=== PATIENT | female | born 1945 | race Caucasian/White ===

== ENCOUNTER 2022-10-30 10:20 | Outpatient (REF) | payer MEDICARE, SELFPAY ==
--- NOTE | ~2022-10-30 | XR_ITS ---
EXAMINATION: XR knee RT 2V, XR knee standing BI CLINICAL INFORMATION: Reason for Exam M25.561 - Pain in right knee COMPARISON: Knee radiographs 05/04/2022 TECHNIQUE: 1 views of the bilateral knees and 2 views of the right knee FINDINGS: RIGHT KNEE: No acute fracture or dislocation. Advanced degenerative changes of the knee with near complete loss of medial compartment joint space and bulky tricompartmental osteophytes. This is similar to prior. Small suprapatellar joint effusion. Soft tissues are unremarkable. LEFT KNEE: No acute fracture or dislocation. Status post total knee arthroplasty. No evidence of hardware fracture or complication. Few foci of heterotopic ossification along the medial aspect of the knee again seen. Soft tissues are unremarkable. XR/XR knee standing BI IMPRESSION: * No acute osseous abnormality. * Advanced degenerative changes of the right knee with small suprapatellar joint effusion. * Status post total knee arthroplasty. No evidence of hardware fracture or complication. Few foci of heterotopic ossification along the medial aspect of the knee again seen.
--- NOTE | ~2022-10-30 | XR_ITS ---
EXAMINATION: XR knee RT 2V, XR knee standing BI CLINICAL INFORMATION: Reason for Exam M25.561 - Pain in right knee COMPARISON: Knee radiographs 05/04/2022 TECHNIQUE: 1 views of the bilateral knees and 2 views of the right knee FINDINGS: RIGHT KNEE: No acute fracture or dislocation. Advanced degenerative changes of the knee with near complete loss of medial compartment joint space and bulky tricompartmental osteophytes. This is similar to prior. Small suprapatellar joint effusion. Soft tissues are unremarkable. LEFT KNEE: No acute fracture or dislocation. Status post total knee arthroplasty. No evidence of hardware fracture or complication. Few foci of heterotopic ossification along the medial aspect of the knee again seen. Soft tissues are unremarkable. XR/XR knee RT 2V IMPRESSION: * No acute osseous abnormality. * Advanced degenerative changes of the right knee with small suprapatellar joint effusion. * Status post total knee arthroplasty. No evidence of hardware fracture or complication. Few foci of heterotopic ossification along the medial aspect of the knee again seen.
== END 2022-10-30 10:21 | disposition home or self-care (01) ==
LOC: HO.HOSX 10:20
PROVIDERS: PCP Internal Medicine; Visit Provider Orthopaedic Surgery
DX: M17.11 Unilateral primary osteoarthritis, right knee (principal)
CPT/HCPCS: 73560; 73565; 99212

== ENCOUNTER 2022-12-13 10:04 | Outpatient (AMB) | payer MEDICARE, SELFPAY ==
--- NOTE | 2022-12-13 10:22 | A.OFFVIS_ITS ---
Intake Vital Signs 12/13/22 10:23 Height 5 ft 3 in Weight 165 lb BMI 29.2 Intake Visit Reasons: Pre-Op RT TKA 12/17/22DR Intake Note: Maci 77 yr old female presents today for her Pre op visit for her right total knee replacement. Pain management agreement reviewed and signed. The patient presents with complaints of progressively worsening right knee pain. She did undergo left total knee replacement surgery on 04/20/2022. She reports minimal discomfort in her left knee. She denies any fevers or chills. She describes her right knee pain as sharp and severe in nature, 02/19. Her right knee pain has gotten worse over the last few years in spite of continued non operative treatments. She has tried Tylenol and anti-inflammatory medicines which gave her minimal relief. She has also done physical therapy for 12 weeks over the last 6 months which aggravated her pain. She has had multiple injections in the past. The most recent injection gave her minimal relief. The most recent injection was greater than 3 months ago. The patient has difficulty walking even short distances because of her right knee pain. At this point her right knee pain is interfering with her activities of daily living and her ability to sleep well through the night. Allergies No Known Allergies Allergy (Verified 12/13/22 10:25) Medication List - Last Reviewed 12/13/22 by YUNG Bryant cholecalciferol (vitamin D3) (Vitamin D3) 50 mcg PO QAM cyanocobalamin (vitamin B-12) (Vitamin B-12) 1,000 mcg PO QAM rosuvastatin 5 mg PO QAM [facility] Medical History Arthritis Back pain Bifascicular bundle branch block Elevated cholesterol RBBB (right bundle branch block) Resting tremor Surgical History History of left knee replacement (04/20/22) Hx of arthroscopy of right knee Hx of excision of mass Hx of foot surgery Social History Are you a primary home care attendant to a significant other at home: No Do you presently have visiting nurse or other home services: No Patient Tobacco Use Status: Never used Tobacco Current occupational status: retired Physical Exam Vital Signs: BMI result Body Mass Index 29.2 Const Other: Well-nourished well-developed very friendly female awake alert and oriented x3 in no acute distress Lungs clear to auscultation bilaterally with symmetric expansion Cardiovascular exam regular rate and rhythm Abdominal exam is soft nontender nondistended Extrem Other: Bilateral lower extremity examination shows good capillary refill, no skin lesions noted, normal sensation light touch Right knee examination shows a minimal effusion, palpable crepitus with range of motion, pain with range of motion, range of motion from -3 degrees to 115 degrees, no instability Assessment & Plan Assessment & Plan (1) Arthritis of right knee: Code(s): M17.11 - Unilateral primary osteoarthritis, right knee Plan: Ms. Guerrero presents with progressively worsening right knee pain due to end- stage degenerative joint disease. I had a lengthy discussion with the patient regarding the treatment options. At this point she has failed continued non operative treatments. The risks and benefits of right total knee replacement surgery were discussed at length with the patient. We had a discussion regarding implant in bearing options. We had a detailed discussion of the advantages and limitations of the specific implant designs, materials and bearing surfaces. All questions were answered to the patient's satisfaction. The patient wishes to proceed with surgery. Because the patient's symptoms are severe and intractable we will schedule surgery for as soon as possible. Coronavirus precautions will be taken. family services coordinator will be consulted following her surgery for inpatient rehabilitation at [facility]. She did well at [facility] following her left total knee replacement surgery last year. I will see the patient back 2-3 weeks following her surgery for her 1st postoperative appointment. The patient will follow-up as instructed. Feel free to call me at any time should questions regarding her orthopedic management arise. I spent 21 minutes in reviewing the patient's records and imaging studies, seeing the patient and documenting in the medical record. Coding Level of Care Code Est Pt Level 2 (20630) Diagnoses Arthritis of right knee M17.11
[2022-12-13 10:23] VITALS: BMI 29.2
== END 2022-12-13 10:43 | disposition home or self-care (01) ==
PROVIDERS: PCP Internal Medicine; Visit Provider Orthopaedic Surgery
DX: M17.11 Unilateral primary osteoarthritis, right knee (principal)
CPT/HCPCS: 99212

== ENCOUNTER → 2022-12-13 10:04 | Outpatient (BNVA) | payer MEDICARE, SELFPAY | PROVIDERS: PCP Internal Medicine; Visit Provider Orthopaedic Surgery | DX: Z01.818 Encounter for other preprocedural examination (principal); M17.11 Unilateral primary osteoarthritis, right knee | CPT/HCPCS: 99212 ==

== ENCOUNTER 2022-12-17 05:57 | Day surgery (SDC) | payer MEDICARE, SELFPAY ==
[2022-12-12 12:54] VITALS: BMI 27.6
[2022-12-12 13:03] VITALS: BP 140/71; PULSE 60; RESP 16; O2SAT 97
--- NOTE | 2022-12-12 13:35 | HO.ANESPROP2 ---
HPI - Anesthesia Eval Consult details Narrative: For right total knee replacement Had prior left TKR w Dr. Matias van SAB. Very satisfied w that anesthetic and surgery. [facility] Active Problems Active Problems: All Active Problems (Updated 12/12/22 @ 12:51 by Janel Mcgowan RN) Knee pain, bilateral (Acute) Arthritis of right knee (Acute) Past Medical History Medical History (Updated 12/12/22 @ 12:51 by Janel Mcgowan RN) Arthritis Back pain Bifascicular bundle branch block Elevated cholesterol RBBB (right bundle branch block) Resting tremor Family History Family history of problems with anesthesia: No Surgical History Surgical History (Updated 12/12/22 @ 12:52 by Janel Mcgowan RN) History of left knee replacement (04/20/22) Hx of arthroscopy of right knee Hx of excision of mass Hx of foot surgery History of Problems with Anesthesia: No Social History Social History (Updated 10/30/22 @ 10:39 by Yamileth Bhakta CMA) Are you a primary health care aide to a significant other at home: No Do you presently have visiting nurse or other home services: No Patient Tobacco Use Status: Never used Tobacco Use of substances other than those prescribed or required for medical reasons: No Have you been hit, kicked, punched, or otherwise hurt by someone within the past year? If so, by whom?: No Are you DNR?: Yes Advance Directives Information Provided: Yes (states has official HCP form) Advance Directives on File: No Recently lost weight without trying: No Eating poorly because of decreased appetite: No Nutrition Risks: Surgical patient >75years Poor oral hygiene: No Current occupational status: retired [employer] Allergies Allergy/AdvReac Type Severity Reaction Status Date / Time No Known Allergies Allergy Verified 10/30/22 10:36 Home Medications Medication Instructions Recorded Confirmed Last Taken Type rosuvastatin 5 mg tablet 5 mg PO QAM 10/30/22 12/12/22 Unknown History cholecalciferol (vitamin D3) 50 50 mcg PO QAM 12/11/22 12/12/22 Unknown History mcg (2,000 unit) capsule (Vitamin D3) cyanocobalamin (vitamin B-12) 1,000 mcg PO QAM 12/12/22 12/12/22 Unknown History 1,000 mcg tablet (Vitamin B-12) Exam Exam Date and Time: December 12, 2022 1335 Height,Weight and Vital Signs: Height 5 ft 4 in Weight 73.028 kg Last Vital Signs Pulse 60 12/12/22 13:03 Resp 16 12/12/22 13:03 BP 140/71 H 12/12/22 13:03 Pulse Ox 97 12/12/22 13:03 O2 Del Method Room Air 12/12/22 13:03 Assessment and Plan Assessment Anesthesia Assessment: Anesthesia Plan Discussed and Chart Reviewed Final Anesthetic Review Family History of Problems with Anesthesia: No History of Problems with Anesthesia: No ASA Class: III Patient Risk: Intermediate Procedure Risk: Intermediate Anesthetic Plan Anesthetic Plan: Spinal
[2022-12-12 17:20] LABS: MRSA Nasal PCR NEGATIVE (Negative); SA Nasal PCR POSITIVE (Negative)
[2022-12-17] VITALS (12 sets, daily range): BP systolic 88–152; BP diastolic 48–78; PULSE 50–65; RESP 15–22; TEMP 36.1–36.7; O2SAT 93–98; BMI 27.6
--- NOTE | ~2022-12-17 | XR_ITS ---
EXAMINATION: XR KNEE, RIGHT CLINICAL INFORMATION: The patient is status post right knee total arthroplasty. COMPARISON: Right knee radiographs dated 10/30/2022. TECHNIQUE: Four views of the right knee. FINDINGS: The patient is status post right knee arthroplasty showing good anatomic alignment and no evidence for hardware malfunction. There is no acute fracture. Mild to moderate intra-articular and soft tissue air is noted. Multiple surgical clips overlie the soft tissues anteriorly. XR/XR knee RT 2V IMPRESSION: Post surgical changes. No hardware abnormality. No acute fracture.
[2022-12-17] MEDS: Lactated Ringers 1,000 ML 100 ML IVCONT ×2 (06:54→13:37)
--- NOTE | 2022-12-17 07:25 | HO.ANESPROP2 ---
HPI - Anesthesia Eval Consult details Narrative: 77 yo F presenting for right TKA PMFSH Active Problems Active Problems: All Active Problems (Updated 12/12/22 @ 12:51 by Janel Mcgowan RN) Knee pain, bilateral (Acute) Arthritis of right knee (Acute) Past Medical History Medical History Arthritis Back pain Bifascicular bundle branch block Elevated cholesterol RBBB (right bundle branch block) Resting tremor Family History Family history of problems with anesthesia: No Surgical History Surgical History History of left knee replacement (04/20/22) Hx of arthroscopy of right knee Hx of excision of mass Hx of foot surgery History of Problems with Anesthesia: No Social History Social History Are you a primary child care specialist to a significant other at home: No Do you presently have visiting nurse or other home services: No Patient Tobacco Use Status: Never used Tobacco Use of substances other than those prescribed or required for medical reasons: No Have you been hit, kicked, punched, or otherwise hurt by someone within the past year? If so, by whom?: No Are you DNR?: Yes Advance Directives Information Provided: Yes (states has official HCP form) Advance Directives on File: No Recently lost weight without trying: No Eating poorly because of decreased appetite: No Nutrition Risks: Surgical patient >75years Poor oral hygiene: No Current occupational status: retired Meds Allergies Allergy/AdvReac Type Severity Reaction Status Date / Time No Known Allergies Allergy Verified 12/13/22 10:25 Active Medications: Current Medications Lactated Ringer's (Lr) 1,000 mls @ 100 mls/hr IVCONT .Q10H HONEY Last Admin: 12/17/22 06:54 Dose: 100 mls/hr Home Medications Medication Instructions Recorded Confirmed Last Taken Type rosuvastatin 5 mg tablet 5 mg PO QAM 10/30/22 12/13/22 Unknown History cholecalciferol (vitamin D3) 50 50 mcg PO QAM 12/11/22 12/13/22 Unknown History mcg (2,000 unit) capsule (Vitamin D3) cyanocobalamin (vitamin B-12) 1,000 mcg PO QAM 12/12/22 12/13/22 Unknown History 1,000 mcg tablet (Vitamin B-12) Exam Exam Date and Time: December 17, 2022 0725 Height,Weight and Vital Signs: Height 5 ft 4 in Weight 73.028 kg Last Vital Signs Temp 97.4 F 12/17/22 06:27 Pulse 64 12/17/22 06:27 Resp 18 12/17/22 06:27 BP 152/74 H 12/17/22 06:27 Pulse Ox 97 12/17/22 06:27 O2 Del Method Room Air 12/17/22 06:27 Pertinent Lab Results Pertinent Lab Results: Laboratory Tests 12/12/22 12/12/22 13:10 13:44 Nasal Screen MRSA (PCR) NEGATIVE Nasal S. aureus Screen POSITIVE A Nasal MRSA/S.aureus Interp SEE NOTE Blood Type A Negative Antibody Screen NEGATIVE Airway Mallampati Class: I TM Dist: >3cm Neck ROM: Full Loose/Missing/Broken Teeth: No Heart: S1S2 Lungs: CTAB Assessment and Plan Assessment Anesthesia Assessment: Anesthesia Plan Discussed and Chart Reviewed Final Anesthetic Review Family History of Problems with Anesthesia: No History of Problems with Anesthesia: No NPO: Yes ASA Class: II Final Preanesthetic Review: No Changes in Pt Med Stat, Meds/Allgs Chart Reviewed, Consent Obtained/Reviewed and Anes Risks/Benef Reviewed Patient Risk: Low Procedure Risk: Intermediate Assessment/Block/Sedation in SS: Assess/Block/Sedation-SS Anesthetic Plan Anesthetic Plan: Spinal, Regional Block (right saphenous block) and Agree w/ Assess. and Plan Disposition: Standard PACU
--- NOTE | 2022-12-17 10:48 | P.BOP_ITS ---
Brief Operative Note Date of Service: 12/17/22 Pre-op diagnosis: Right knee degenerative joint disease Post-op diagnosis: same Procedure: Right total knee arthroplasty Implants: [place] [employer] cemented posterior stabilized total knee arthroplasty with a femoral component size 4 right, a universal tibial component size 4, polyethylene liner size 4 with 11 mm of thickness, an asymmetric patellar component size 29 with 9 mm of thickness Surgeon: Coleman Salcedo MD Anesthesia: regional and spinal Was an Director Of Extension Work used for this Procedure?: No Director Of Extension Work: Krystal Spangler Estimated blood loss (mL): 200 Tourniquet time (min): 0 Condition: stable Disposition: PACU
--- NOTE | 2022-12-17 10:50 | W.PM.OPN ---
Operative Note Operative Note Date of Service: 12/17/22 Narrative: After the patient was identified as Maci Guerrero and her right knee was initialed by myself the patient was brought to the holding area where a right leg nerve block was performed by the anesthesiologist in routine fashion. The patient was then brought to the operating room where conscious sedation and spinal anesthesia were performed by the anesthesiologist in routine fashion The patient was given 2 g of IV Ancef preoperatively for infection prophylaxis. The patient's right lower extremity was prepped and draped in sterile fashion. A formal time-out was completed. The patient's right knee was placed onto a small bump to produce 30? of knee flexion during exposure. A #10 scalpel blade was used to make a midline incision extending 1 handbreadth proximal and distal to the patella. A second #10 scalpel blade was used to dissect the subcutaneous tissues down to the extensor mechanism. The subcutaneous flaps were maintained as thick as possible. A medial parapatellar arthrotomy was then performed using a #10 scalpel blade. The arthrotomy was begun just medial to the patellar tendon. The arthrotomy was continued 1 cm medial to the patella and then 5 mm into the medial aspect of the quadriceps tendon. The infrapatellar fat pad was partially excised to help with exposure. The soft tissue retinaculum was raised one-half of the way around the medial aspect of the proximal tibia. The patella was everted and the knee was flexed to 90?. There was no injury to the patellar tendon or its insertion onto the tibial tubercle. A drill bit was introduced into the distal aspect of the femur with a starting point 1 cm anterior to the origin of the posterior cruciate ligament. The intramedullary alignment jerome was put into place. The distal alignment guide was set for a 5 degree valgus cut. The distal cutting block was put into place and was held with 4 pins. The intramedullary alignment jerome was removed. Soft tissues were retracted in the distal femoral cut was made using a sagittal saw. The distal aspect of the femur measured to be a size 4 right component. Two drill holes were placed into the distal aspect of the femur marking 3? of external rotation. The distal cutting block was impacted into place and was held with 2 pins. Soft tissues were retracted and the 4 distal femoral cuts were made using a sagittal saw. Final notching and drilling of the distal aspect of the femur were performed in routine fashion. The trial femoral component was impacted into place. The knee was taken through a full range of motion. The patella tracked well. The patella was everted and the knee was flexed to 90?. The trial component was removed and our attention was directed to the proximal tibia. The medial and lateral menisci were removed using a #10 scalpel blade. A small rim of the medial meniscus was left intact to help prevent injury to the medial collateral ligament. A drill bit was then introduced into the proximal tibia with a starting point midway from medial to lateral and one-third of the way posteriorly. The intramedullary alignment jerome was put into place. The proximal tibial cutting guide was placed over the alignment jerome in line with the 2nd toe. The guide was held in place using 3 pins. The intramedullary alignment jerome was removed. Soft tissues were retracted and the proximal tibial cut was made using a sagittal saw. The proximal tibia measured to be a size 4 component. The tibial tray was put into place with an 11 mm liner. The femoral component was impacted into place. The knee was taken through a full range of motion. There was full flexion and full extension. There was no instability with varus or valgus stress testing with the knee in flexion or extension. The patella tracked well with no medially directed force. The rotation of the tibial tray was marked using electrocautery with the knee in extension. The patella was everted and the knee was flexed to 90?. All trial components were removed. The tibial tray was placed onto the proximal tibia in line with the electrocautery patricia. The tray was held in place using 3 pins. Final broaching and drilling of the proximal tibia were performed in routine fashion. The trial liner and trial femoral component were put into place. The knee was brought into extension and our attention was directed to the patella. The patella measured 25 mm in thickness. The patellar resection guide was set for a 10 mm resection. Soft tissues were retracted and the patella cut was made using a sagittal saw. The remaining patella measured 15 mm in thickness. The undersurface of the patella was measured to be a size 29 asymmetric component. Three drill holes were placed into the undersurface of the patella in routine fashion. The trial component was put into place. The knee was taken through a full range of motion. The patella tracked well. The patella was everted and the knee was flexed to 90?. All trial components were removed. The knee was once again brought into extension and placed onto a small bump. The knee joint was irrigated with copious amounts of normal saline solution via pulse lavage while the cement was mixed. The patella was everted and the knee was flexed to 90?. A small amount of cement was placed along the posterior aspects of the tibial and femoral components. Cement was then pressurized into the proximal tibia. The tibial component was impacted into place. Any excess cement was removed. The polyethylene liner was then impacted into place. Cement was then pressurized into the distal aspect of the femur. A small amount of cement was placed into the intramedullary canal to help reduce bleeding. The femoral component was impacted into place. Any excess cement was removed. The knee was then brought into extension. Cement was pressurized into the undersurface of the patella. The patellar component was put into place and was held with a patella clamp. Any excess cement was removed. Once the cement had hardened the patellar clamp was removed. The knee was taken through a full range of motion. There was full flexion and extension. There was no instability with varus or valgus stress testing with the knee in flexion or extension. The patella tracked well with no medially directed force. The knee joint was irrigated with copious amounts of normal saline solution via pulse lavage. Any significant bleeding vessels were coagulated. The patient's right knee was placed onto a small bump. The arthrotomy was closed with #2 Ethibond [id number] interrupted suture as well as #1 Vicryl [id number] interrupted suture. The wound was once again irrigated. The subcutaneous tissues were closed with 0 Vicryl and 2-0 Vicryl interrupted sutures. The skin was closed with skin issa. Dry sterile dressing and Niraj bandages were placed over the patient's right knee. The patient was awake and alert. The patient was transferred to the recovery room in stable condition. Surgeon - Coleman Salcedo MD
[2022-12-17] MEDS: Acetaminophen 325 MG TABLET 650 MG PO (13:44)
[2022-12-17] MEDS: ceFAZolin Sodium/Dextrose,Iso 2 GM/50 ML PIGGYBACK IV (16:12)
[2022-12-17] MEDS: 0.9 % Sodium Chloride Flush 3 ML SYRINGE IVFLUSH (16:13)
[2022-12-17] MEDS: oxyCODONE HCl Immed Release 5 MG TABLET PO ×2 (16:23→19:57)
[2022-12-17] MEDS: Enoxaparin Sodium 30 MG/0.3 ML SYRINGE SUBCUT (19:56)
[2022-12-17] MEDS: Docusate Sodium 100 MG CAPSULE PO (19:57)
[2022-12-17] MEDS: Celecoxib 200 MG CAPSULE PO (19:58)
[2022-12-18] MEDS: Lactated Ringers 1,000 ML 100 ML IVCONT ×3 (00:17→20:20)
[2022-12-18] MEDS: ceFAZolin Sodium/Dextrose,Iso 2 GM/50 ML PIGGYBACK IV ×2 (00:17→08:50)
[2022-12-18] MEDS: Acetaminophen 325 MG TABLET 650 MG PO ×3 (02:28→18:29)
[2022-12-18 03:52] VITALS: BP 110/60; PULSE 56; RESP 16; TEMP 36.1; O2SAT 97
[2022-12-18] MEDS: oxyCODONE HCl Immed Release 5 MG TABLET PO (05:13)
[2022-12-18 05:59] LABS: MANUAL DIFF FLAG NO
[2022-12-18 06:19] LABS: Anion Gap 10 (12-20); Blood Urea Nitrogen 16 mg/dL (9-16); Carbon Dioxide 29 mmol/L (22-29); Chloride 105 mmol/L (96-108); Creatinine Clr Calc Pharmacy 59.7; Estimated Glomerular Filt Rate > 60; Glucose Fasting 126 mg/dL (60-99); Potassium 4.3 mmol/L (3.3-5.1); Sodium 140 mmol/L (135-145)
[2022-12-18 06:30] LABS: Basophils Percent Auto 0.2 % (0-2); Eosinophils Percent Auto 0.1 % (0-4); Hematocrit 32.5 % (37.0-47.0); Hemoglobin 10.3 g/dl (12.0-16.0); Imm Gran Abs Auto 0.04 X10*3/uL (0.00-0.03); Imm Gran Pct Auto 0.5 % (0.0-0.4); Lymphocytes Percent Auto 11.5 % (20-40); Mean Corpuscular HGB Conc 31.7 g/dl (31.0-35.0); Mean Corpuscular Hemoglobin 30.1 pg (27.0-33.0); Mean Platelet Volume 10.9 fL (9.4-12.3); Monocytes Percent Auto 11.4 % (2-11); Neutrophils Absolute Auto 6.6 x10*3/uL (2.0-8.3); Neutrophils Percent Auto 76.3 % (45-73); Platelet Count 181 X10*3/uL (160-400); Red Blood Count 3.42 X10*6/uL (4.20-5.50); White Blood Count 8.7 X10*3/uL (4.8-10.8)
[2022-12-18 07:07] VITALS: BP 107/61; PULSE 51; RESP 18; TEMP 36.4; O2SAT 94
--- NOTE | 2022-12-18 07:38 | P.PNOP_ITS ---
Subjective Subjective Date of Service: 12/18/22 Interval history: POD 1 s/p RT TKa No overnight events resting in bed denies cp,sob,palpitations. Physical Exam Vital Signs: Vital Signs: Last Vital Signs Temp 97.5 F 12/18/22 07:07 Pulse 51 12/18/22 07:07 Resp 18 12/18/22 07:07 BP 107/61 12/18/22 07:07 Pulse Ox 94 12/18/22 07:07 O2 Del Method Room Air 12/18/22 07:07 O2 Flow Rate 2 12/17/22 10:55 BMI result Body Mass Index 27.6 Const: General: cooperative, healthy appearing and no acute distress Resp: Effort & Inspection: normal respiratory effort and able to speak in complete sentences Cardio: Rate: regular rate Peripheral pulses: Peripheral pulses 2+ throughout GI: Palpation (GI): Soft to palpation Skin: General skin exam: no rashes or lesions noted Extrem: Other: bandge clean dry and intact. [place] intact. No erythema or joint effusion. Calf supple nontender. Neurovascularly intact. Procedures Date of Service Date of Service: 12/18/22 Progress Note: A&P Assessment and plan (1) Status post total right knee replacement: Status: Acute Assessment and Plan: * Continue pain mgmnt * continue lovenox for dvt ppx * continue PT for RT TKA * Dispo planning-Pending PT eval, pain mgmnt Time Spent With Patient Time: Total time managing care of this patient today ____ minutes. Quality Stroke Does the patient have a stroke diagnosis?: No VTE Prior VTE?: No VTE Risk Level:: Surgical - very high VTE Device Contraindication: N/A - Device Ordered VTE Drug Contraindication: N/A - Med Ordered
[2022-12-18] MEDS: ondansetron HCL 4 MG/2 ML VIAL IVPUSH (08:49)
[2022-12-18] MEDS: Enoxaparin Sodium 30 MG/0.3 ML SYRINGE SUBCUT ×2 (08:53→19:59)
--- NOTE | 2022-12-18 09:16 | HO.POSTANES ---
Post Anesthesia Evaluation Post Anesthesia Evaluation Date of Service: 12/18/22 Vital Signs: Vital Signs Temp Pulse Resp BP Pulse Ox O2 Del Method 12/18/22 07:07 97.5 F 51 18 107/61 94 Room Air 12/18/22 03:52 96.9 F 56 16 110/60 97 Room Air Anesthesia: Spinal and Nerve Block Mental Status: Awake Pain Control: Satisfactory Nausea/Vomiting: None Hydration: Adequate Anesthesia-Related Issues: No Anes. Related Issues
[2022-12-18] MEDS: Docusate Sodium 100 MG CAPSULE PO ×2 (09:25→19:58)
[2022-12-18] MEDS: Celecoxib 200 MG CAPSULE PO ×2 (09:25→19:59)
[2022-12-18] MEDS: Atorvastatin Calcium 20 MG TABLET PO (09:26)
[2022-12-18] MEDS: Cyanocobalamin (Vitamin B-12) 1,000 MCG TABLET 1000 MCG PO (09:26)
[2022-12-18] MEDS: Cholecalciferol (Vitamin D3) 25 MCG TABLET 50 MCG PO (09:26)
--- NOTE | 2022-12-18 09:55 | MHC.CM.PN ---
pt lives alone in [facility] pt sergio go to str when chica landers is [facility] 2nd maggie forbes
[2022-12-18 15:26] VITALS: BP 148/65; PULSE 56; RESP 18; TEMP 36.8; O2SAT 99
--- NOTE | 2022-12-18 18:34 | W.MHC.F2F ---
Service Date Service Date: 12/18/22 Encounter Date of encounter: 12/19/22 Reasons for Services Signs and symptoms assessed: s/p RTKA. Pt. is considered homebound due to recent surgery. Unable to drive, poor balance, poor gait mechanics. Reason for physical therapy: home safety and mobility, therapeutic exercises, restore joint function, gait/transfer training, assess need for DME and ADL training Homebound: Leaving the home is medically contraindicated at this time without the asist of a device and/or another person due th the listed conditions above and below. Reason homebound: unsteady gait / fall risk, leg weakness, pain with ambulation, pain with transfers, poor balance / fall risk and unable to drive Certification: Based on the above findings, I certify that this patient is confined to the home and needs intermittent care home care, physical therapy and/or speech therapy, or continues to need occupational therapy. The patient is under my care, and I have initiated the establishment of the plan of care. The patient will be followed by a physician who will periodically review the plan of care. Time Spent With Patient Time: Total time managing care of this patient today ____ minutes.
--- NOTE | 2022-12-18 18:35 | PM.DS ---
DS: Providers Provider Date of Service: 12/20/22 Primary care physician: Laura Soto MD DS: Diagnosis Discharge Diagnosis (1) Status post total right knee replacement: Status: Acute DS: Summary Hospital Course Hospital Course: The patient underwent a successful right total knee arthroplasty, they were transferred to PACU and then to the floor to recover. During their stay, their vitals were stable, afebrile at 98.2. Labs were unremarkable, H/H 10.3/32.5. POD 0 they were started on Lovenox for DVT ppx, they also received Physical Therapy services twice a day. Prior to discharge, their dressing was changed, incision clean dry and intact, Aquacel dressing intact and the plan was to be discharged home with VNA services. Time Spent with Patient Time attestation: Total time managing care of this patient today ____ minutes. Discharge coordination time: Less than 30 minutes Quality: Safe Use of Opioids Does Pt have an Active Cancer Diagnosis on the Problem List?: No Quality: Stroke Does the patient have a stroke diagnosis?: No Physical Exam Vital Signs: Vital Signs: Last Vital Signs Temp 98.2 F 12/18/22 15:26 Pulse 56 12/18/22 15:26 Resp 18 12/18/22 15:26 BP 148/65 H 12/18/22 15:26 Pulse Ox 99 12/18/22 15:26 O2 Del Method Room Air 12/18/22 15:26 O2 Flow Rate 2 12/17/22 10:55 BMI result Body Mass Index 27.6 Const: General: cooperative, healthy appearing and no acute distress Resp: Effort & Inspection: normal respiratory effort and able to speak in complete sentences Cardio: Rate: regular rate Peripheral pulses: Peripheral pulses 2+ throughout GI: Palpation (GI): Soft to palpation Skin: General skin exam: no rashes or lesions noted Extrem: Other: Right knee bandage clean dry and intact. [place] intact. No erythema or joint effusion. Calf supple nontender. Neurovascularly intact. DS: Data Data Completed and Pending Pending studies at discharge: Pending at discharge 12/17/22 09:31 Surgical [PTH] Routine Labs on day of discharge: Laboratory Results - last 24 hr 12/18/22 12/18/22 05:03 05:03 WBC 8.7 RBC 3.42 L Hgb 10.3 L Hct 32.5 L MCV 95.0 MCH 30.1 MCHC 31.7 RDW 13.0 Plt Count 181 MPV 10.9 Immature Gran % (Auto) 0.5 H Neut % (Auto) 76.3 H Lymph % (Auto) 11.5 L [place] % (Auto) 11.4 H Eos % (Auto) 0.1 Baso % (Auto) 0.2 Lymph # (Auto) 1.0 L [place] # (Auto) 1.0 Eos # (Auto) 0.0 Baso # (Auto) 0.0 Abs Immat Gran (auto) 0.04 H Absolute Neuts (auto) 6.6 Absolute Nucleated RBC 0.000 Nucleated RBC % (auto) 0.0 Sodium 140 Potassium 4.3 Chloride 105 Carbon Dioxide 29 Anion Gap 10 L BUN 16 Creatinine 0.76 Estim Creat Clear Calc 59.7 Estimated GFR > 60 Fasting Glucose 126 H Calcium 9.0 Discharge Plan Discharge Patient Disposition: Home, Self-Care Referrals: Krystal Spangler PA-C [Physician [facility]] - 01/03/23 2:15 pm Discharge Medications: New acetaminophen 325 mg Tablet 650 mg PO Q6H PRN (Reason: Pain, Mild (Pain Scale 1-3)) 30 Days Qty: 240 0RF celecoxib 200 mg Capsule 200 mg PO BID 30 Days Qty: 60 0RF docusate sodium 100 mg Capsule 100 mg PO BID 30 Days Qty: 60 0RF oxycodone 5 mg tablet 5 mg PO Q4H PRN (Reason: pain) 7 Days Qty: 42 0RF Rx Instructions: Partial Fill upon patient request. Eliquis 5 mg tablet 5 mg PO BID 42 Days Qty: 84 0RF Continued cholecalciferol (vitamin D3) [Vitamin D3] 50 mcg (2,000 unit) Capsule 50 mcg PO QAM cyanocobalamin (vitamin B-12) [Vitamin B-12] 1,000 mcg Tablet 1,000 mcg PO QAM rosuvastatin 5 mg tablet 5 mg PO QAM Discharge Orders: Discharge Order (Routine); Ordered 12/20/22 Ordered By: Krystal Spangler Diet: Advance to usual diet Activity on Discharge: Use cane or walker Activity Restrictions/Additional Instructions: Physical Therapy for ROM 0-120, quad strength, gait training. Use walker for ambulation Limit stair climbing, No shower, No tub bath, No driving Continue anticoagulant Keep Aquacel dressing clean, dry and intact. Follow up with orthopedics in 2 weeks
[2022-12-18 19:11] VITALS: BP 156/61; PULSE 63; RESP 18; TEMP 36.1; O2SAT 98
[2022-12-18 20:06] VITALS: TEMP 36.2
[2022-12-19] MEDS: Acetaminophen 325 MG TABLET 650 MG PO ×4 (01:42→23:47)
[2022-12-19 04:00] VITALS: BP 157/72; PULSE 63; RESP 18; TEMP 36.1; O2SAT 95
[2022-12-19] MEDS: Lactated Ringers 1,000 ML 100 ML IVCONT (05:08)
[2022-12-19 05:36] LABS: MANUAL DIFF FLAG NO
[2022-12-19 05:38] LABS: Basophils Absolute Auto 0.1 X10*3/uL (0.0-0.2); Basophils Percent Auto 0.8 % (0-2); Eosinophils Absolute Auto 0.1 X10*3/uL (0.0-0.4); Eosinophils Percent Auto 0.8 % (0-4); Hematocrit 29.3 % (37.0-47.0); Hemoglobin 9.2 g/dl (12.0-16.0); Imm Gran Abs Auto 0.02 X10*3/uL (0.00-0.03); Imm Gran Pct Auto 0.3 % (0.0-0.4); Lymphocytes Percent Auto 15.6 % (20-40); Mean Corpuscular HGB Conc 31.4 g/dl (31.0-35.0); Mean Corpuscular Hemoglobin 30.1 pg (27.0-33.0); Mean Corpuscular Volume 95.8 fL (80.0-98.0); Mean Platelet Volume 11.1 fL (9.4-12.3); Monocytes Absolute Auto 0.7 X10*3/uL (0.1-1.2); Monocytes Percent Auto 11.1 % (2-11); Neutrophils Absolute Auto 4.7 x10*3/uL (2.0-8.3); Neutrophils Percent Auto 71.4 % (45-73); Platelet Count 166 X10*3/uL (160-400); Red Blood Count 3.06 X10*6/uL (4.20-5.50); Red Cell Distribution Width 12.9 % (11.0-16.0); White Blood Count 6.6 X10*3/uL (4.8-10.8)
[2022-12-19 05:54] LABS: Anion Gap 9 (12-20); Blood Urea Nitrogen 13 mg/dL (9-16); Calcium 8.9 mg/dL (8.4-10.2); Carbon Dioxide 29 mmol/L (22-29); Chloride 108 mmol/L (96-108); Creatinine Clr Calc Pharmacy 64.9; Estimated Glomerular Filt Rate > 60; Glucose Fasting 100 mg/dL (60-99); Potassium 4.1 mmol/L (3.3-5.1); Sodium 142 mmol/L (135-145)
--- NOTE | 2022-12-19 07:22 | P.PNOP_ITS ---
Subjective Subjective Date of Service: 12/19/22 Interval history: POD2 s/p RTKA. Patient is resting in bed comfortably. No overnight events. Pain is managed. No additional complaints. Physical Exam Vital Signs: Vital Signs: Last Vital Signs Temp 96.9 F 12/19/22 04:00 Pulse 63 12/19/22 04:00 Resp 18 12/19/22 04:00 BP 157/72 H 12/19/22 04:00 Pulse Ox 95 12/19/22 04:00 O2 Del Method Room Air 12/19/22 04:00 O2 Flow Rate 2 12/17/22 10:55 BMI result Body Mass Index 27.6 Const: General: cooperative, healthy appearing and no acute distress Resp: Effort & Inspection: normal respiratory effort and able to speak in complete sentences Cardio: Rate: regular rate Peripheral pulses: Peripheral pulses 2+ throughout GI: Palpation (GI): Soft to palpation Skin: General skin exam: no rashes or lesions noted Extrem: Other: Right knee bandage clean dry and intact. [place] intact. No erythema or joint effusion. Calf supple nontender. Neurovascularly intact. Procedures Date of Service Date of Service: 12/19/22 Progress Note: A&P Assessment and plan (1) Status post total right knee replacement: Status: Acute Assessment and Plan: * Continue pain mgmnt * continue lovenox for dvt ppx * continue PT for RT TKA * Dispo planning- PT, pain mgmnt, rehab placement Time Spent With Patient Time: Total time managing care of this patient today ____ minutes. Quality Stroke Does the patient have a stroke diagnosis?: No VTE Prior VTE?: No VTE Risk Level:: Surgical - very high VTE Device Contraindication: N/A - Device Ordered VTE Drug Contraindication: N/A - Med Ordered
[2022-12-19 07:27] VITALS: BP 137/65; PULSE 72; RESP 16; TEMP 36.6; O2SAT 96
[2022-12-19] MEDS: Cholecalciferol (Vitamin D3) 25 MCG TABLET 50 MCG PO (09:45)
[2022-12-19] MEDS: Docusate Sodium 100 MG CAPSULE PO ×2 (09:45→21:26)
[2022-12-19] MEDS: polyethylene glycoL 3350 17 GM POWD.PACK PO (09:45)
[2022-12-19] MEDS: Cyanocobalamin (Vitamin B-12) 1,000 MCG TABLET 1000 MCG PO (09:46)
[2022-12-19] MEDS: Enoxaparin Sodium 30 MG/0.3 ML SYRINGE SUBCUT ×2 (09:46→21:26)
[2022-12-19] MEDS: Celecoxib 200 MG CAPSULE PO ×2 (09:46→21:26)
[2022-12-19] MEDS: Atorvastatin Calcium 20 MG TABLET PO (09:46)
[2022-12-19] MEDS: 0.9 % Sodium Chloride Flush 3 ML SYRINGE IVFLUSH ×2 (15:46→23:47)
[2022-12-19 15:50] VITALS: BP 131/61; PULSE 76; RESP 18; TEMP 36.4; O2SAT 95
--- NOTE | 2022-12-19 15:54 | MHC.CM.PN ---
pt is a same day care pt does not qualify for a snf denied by [facility] ,pp rate at [facility] is [id number] for 2 weeks and [facility] is 605 a day for 14 day minium reerral also given to [facility] for home pt
[2022-12-19 19:21] VITALS: BP 110/57; PULSE 63; RESP 18; TEMP 36.6; O2SAT 100
[2022-12-20 03:40] VITALS: BP 130/60; PULSE 68; RESP 18; TEMP 36.4; O2SAT 97
[2022-12-20 06:08] LABS: MANUAL DIFF FLAG NO
[2022-12-20 06:13] LABS: Basophils Percent Auto 0.7 % (0-2); Eosinophils Absolute Auto 0.1 X10*3/uL (0.0-0.4); Eosinophils Percent Auto 2.2 % (0-4); Hematocrit 26.2 % (37.0-47.0); Hemoglobin 8.3 g/dl (12.0-16.0); Imm Gran Abs Auto 0.03 X10*3/uL (0.00-0.03); Imm Gran Pct Auto 0.6 % (0.0-0.4); Lymphocytes Absolute Auto 1.3 X10*3/uL (1.2-4.9); Lymphocytes Percent Auto 23.8 % (20-40); Mean Corpuscular HGB Conc 31.7 g/dl (31.0-35.0); Mean Corpuscular Hemoglobin 30.2 pg (27.0-33.0); Mean Corpuscular Volume 95.3 fL (80.0-98.0); Mean Platelet Volume 11.2 fL (9.4-12.3); Monocytes Absolute Auto 0.6 X10*3/uL (0.1-1.2); Monocytes Percent Auto 11.6 % (2-11); Neutrophils Absolute Auto 3.3 x10*3/uL (2.0-8.3); Neutrophils Percent Auto 61.1 % (45-73); Platelet Count 163 X10*3/uL (160-400); Red Blood Count 2.75 X10*6/uL (4.20-5.50); Red Cell Distribution Width 13.2 % (11.0-16.0); White Blood Count 5.4 X10*3/uL (4.8-10.8)
[2022-12-20 06:23] LABS: Anion Gap 11 (12-20); Blood Urea Nitrogen 14 mg/dL (9-16); Calcium 9.1 mg/dL (8.4-10.2); Carbon Dioxide 28 mmol/L (22-29); Chloride 108 mmol/L (96-108); Creatinine Clr Calc Pharmacy 58.1; Estimated Glomerular Filt Rate > 60; Glucose Fasting 87 mg/dL (60-99); Potassium 3.9 mmol/L (3.3-5.1); Sodium 143 mmol/L (135-145)
[2022-12-20 07:27] VITALS: BP 119/62; PULSE 70; RESP 18; TEMP 36.2; O2SAT 99
[2022-12-20] MEDS: Acetaminophen 325 MG TABLET 650 MG PO (09:06)
[2022-12-20] MEDS: Celecoxib 200 MG CAPSULE PO (09:06)
[2022-12-20] MEDS: polyethylene glycoL 3350 17 GM POWD.PACK PO (09:06)
[2022-12-20] MEDS: Docusate Sodium 100 MG CAPSULE PO (09:06)
[2022-12-20] MEDS: Cholecalciferol (Vitamin D3) 25 MCG TABLET 50 MCG PO (09:06)
[2022-12-20] MEDS: Atorvastatin Calcium 20 MG TABLET PO (09:06)
[2022-12-20] MEDS: Cyanocobalamin (Vitamin B-12) 1,000 MCG TABLET 1000 MCG PO (09:06)
[2022-12-20] MEDS: Enoxaparin Sodium 30 MG/0.3 ML SYRINGE SUBCUT (09:07)
[2022-12-20] MEDS: 0.9 % Sodium Chloride Flush 3 ML SYRINGE IVFLUSH (09:07)
--- NOTE | 2022-12-20 11:00 | MHC.CM.PN ---
DP: PT HAS BEEN MEDICALLY CLEARED FOR DC HOME WITH NEW [facility] FOR HOME P.T. [facility] NOTIFIED OF TODAY'S DC. RN AWARE. FAMILY WILL TRANSPORT HOME.
== END 2022-12-20 14:05 | disposition home health service (06) ==
LOC: HO.SSS 05:58 → HO.S3 09:42
PROVIDERS: Physician Assistant; PCP Internal Medicine; Visit Provider Orthopaedic Surgery
PROC: (CPT 27447; principal; 2022-12-17 07:30)
DX: M17.11 Unilateral primary osteoarthritis, right knee (principal); M25.561 Pain in right knee; R26.2 Difficulty in walking, not elsewhere classified; Z96.652 Presence of left artificial knee joint; Z66 Do not resuscitate; M54.30 Sciatica, unspecified side; I45.2 Bifascicular block; E78.5 Hyperlipidemia, unspecified; I45.10 Unspecified right bundle-branch block; E55.9 Vitamin D deficiency, unspecified; G25.2 Other specified forms of tremor; Z79.899 Other long term (current) drug therapy
CPT/HCPCS: 27447; 36415; 73560; 80048; 85025; 86850; 86900; 86901; 87640; 87641; 88305; 88311; 97110; 97116; 97161; 97530; C1713; C1776; J0131; J0690; J1100; J1650; J2250; J2371; J2405; J3010; J3370

== ENCOUNTER → 2022-12-17 05:57 | Outpatient (BNV) | payer MEDICARE, SELFPAY | PROVIDERS: PCP Internal Medicine; Visit Provider Orthopaedic Surgery | DX: Z47.1 Aftercare following joint replacement surgery (principal); Z96.651 Presence of right artificial knee joint | CPT/HCPCS: 27447; 99024; G0180 ==

== ENCOUNTER 2023-01-03 05:18 | Outpatient (REF) | payer MEDICARE, SELFPAY ==
--- NOTE | ~2023-01-03 | XR_ITS ---
EXAMINATION: XR KNEE, RIGHT XR KNEE, AP BILATERAL CLINICAL INFORMATION: Status-post bilateral knee total arthroplasties. COMPARISON: Radiographs dated 10/30/2022. TECHNIQUE: Lateral and axial views of the right knee are submitted. An AP upright view of the bilateral knees are submitted. FINDINGS: Prosthetic components of the bilateral total knee arthroplasties are appropriately aligned without periprosthetic fracture or abnormal lucency. The right arthroplasty is recently placed, with soft tissue gas and fluid noted and anterior skin issa. There is no foreign body. XR/XR knee RT 3V IMPRESSION: Normal bilateral total knee arthroplasties.
== END 2023-01-03 05:19 | disposition home or self-care (01) ==
LOC: HO.HOSX 05:18
PROVIDERS: Visit Provider Orthopaedic Surgery
DX: M25.561 Pain in right knee (principal); Z47.1 Aftercare following joint replacement surgery; Z96.651 Presence of right artificial knee joint
CPT/HCPCS: 73562

== ENCOUNTER 2023-01-03 13:37 | Outpatient (AMB) | payer MEDICARE, SELFPAY ==
--- NOTE | 2023-01-03 13:40 | MHC.OFFVIS ---
Intake Vital Signs 01/03/23 13:49 Height 5 ft 4 in Weight 161 lb BMI 27.6 Intake Visit Reasons: Post-Op RT TKA 12/17/22DR Intake Note: Maci is a 77 year old female presents today for her post op visit for her right TKA, 12/17/22 Patient reports no pain or discomfort at the moment but she does have a mild ache. Allergies No Known Allergies Allergy (Verified 01/03/23 13:49) HPI Post-Op RT TKA 12/17/22DR HPI Details 77-year-old female who presents in the office today 2 weeks status post right total knee arthroplasty, which was performed on 12/17/[address] Salcedo. The patient reports no pain or discomfort at the moment but she does have mild aching. [facility] Medical History Arthritis Back pain Bifascicular bundle branch block Elevated cholesterol RBBB (right bundle branch block) Resting tremor Surgical History History of left knee replacement (04/20/22) Hx of arthroscopy of right knee Hx of excision of mass Hx of foot surgery Social History Household Members: None Are you a primary plant health care technician to a significant other at home: No Do you presently have visiting nurse or other home services: No Patient Tobacco Use Status: Never used Tobacco Advance Directives Date on File: 12/17/22 service: No Current occupational status: retired Review of Systems Const All systems reviewed & are unremarkable except as noted in HPI and below Physical Exam Vital Signs: BMI result Body Mass Index 27.6 Const General: cooperative, healthy appearing and no acute distress Resp Effort & Inspection: normal respiratory effort and able to speak in complete sentences Cardio Rate: regular rate Peripheral pulses: Peripheral pulses 2+ throughout GI Palpation (GI): Soft to palpation Skin Lesions: no lesions Rashes: no rashes Extrem Other: Right knee: Incision site is clean, dry, and intact. No surrounding erythema or drainage. No signs of infection. [place] intact. NVI. Ambulting with use of a cane. Assessment & Plan Assessment & Plan (1) Status post total right knee replacement: Code(s): Z96.651 - Presence of right artificial knee joint Plan Ms. Guerrero is a 77-year-old female who presents in the office today 2 weeks status post right total knee arthroplasty, which was performed on 12/17/[address] Salcedo. The patient reports no pain or discomfort at the moment but she does have mild aching. Seren[place] were removed and steri-stripes were applied in the office today. Dr. Salcedo was available to see the patient with me while in the office today. She is overall doing very well. She will continue with physical therapy. She will transition to out patient physical therapy. Follow up will be in [address] Salcedo, or sooner if needed. X-rays of the right knee which were obtained while in the office today and were reviewed by me, Krystal Spangler PA-C, revealed orthopedic hardware intact with routine healing. Orders: Orders XR knee RT 3V Today Z96.651 - Presence of right artificial knee joint Patient Instructions: Scribed for Krystal Spangler PA-C by Mary Morgan spanish medical interpreter, on 01/03/2023 at 1:43 pm, EST. Coding Level of Care Code Global (51841) Diagnoses Status post total right knee replacement Z96.651
[2023-01-03 13:49] VITALS: BMI 27.6
== END 2023-01-03 14:30 | disposition home or self-care (01) ==
PROVIDERS: PCP Internal Medicine; Visit Provider Physician Assistant
DX: Z96.651 Presence of right artificial knee joint (principal)
CPT/HCPCS: 99024

== ENCOUNTER 2023-01-31 11:19 | Outpatient (AMB) | payer MEDICARE, SELFPAY ==
--- NOTE | 2023-01-31 12:18 | A.OFFVIS_ITS ---
Intake Vital Signs 01/31/23 12:20 Height 5 ft 4 in Weight 161 lb BMI 27.6 Intake Visit Reasons: RT TKA 12/17/22DR Intake Note: Maci 77 yr old female presents today for her P/O visit for her Right TKA from 12/17/[address] Salcedo. States she is doing well with P.T. will she denies any fevers or chills. She is no longer taking narcotics for her discomfort. She takes Tylenol 2 or 3 times daily as needed. Allergies No Known Allergies Allergy (Verified 01/31/23 12:20) Medication List - Last Reconciled 01/31/23 by Coleman Salcedo MD acetaminophen 650 mg (2 x 325 mg) PO Q6H PRN 30 days apixaban (Eliquis) 5 mg PO BID 42 days celecoxib 200 mg PO BID 30 days cholecalciferol (vitamin D3) (Vitamin D3) 50 mcg PO QAM cyanocobalamin (vitamin B-12) (Vitamin B-12) 1,000 mcg PO QAM docusate sodium 100 mg PO BID 30 days oxycodone 5 mg PO Q4H PRN 7 days rosuvastatin 5 mg PO QAM PFSH Medical History Arthritis Back pain Bifascicular bundle branch block Elevated cholesterol RBBB (right bundle branch block) Resting tremor Surgical History History of left knee replacement (04/20/22) Hx of arthroscopy of right knee Hx of excision of mass Hx of foot surgery Social History Household Members: None Are you a primary health care sanitary technician to a significant other at home: No Do you presently have visiting nurse or other home services: No Patient Tobacco Use Status: Never used Tobacco Advance Directives Date on File: 12/17/22 service: No Current occupational status: retired Physical Exam Vital Signs: BMI result Body Mass Index 27.6 Extrem Other: Physical examination of the patient's right knee shows that the surgical incision is well healed, no erythema, full active extension and flexion to 120 degrees, patella tracks well Assessment & Plan Assessment & Plan (1) Status post total right knee replacement: Code(s): Z96.651 - Presence of right artificial knee joint Plan Ms. Guerrero continues to do well after undergoing right total knee replacement surgery on 12/17/2022. She will continue with her physical therapy exercises. She does know to take antibiotics before any dental work. She will contact me prior to her follow-up appointment in 3 months should any questions or concerns arise. Feel free to call me at any time should questions regarding her orthopedic management arise. Coding Level of Care Code Global (94795) Diagnoses Status post total right knee replacement Z96.651
[2023-01-31 12:20] VITALS: BMI 27.6
== END 2023-01-31 12:36 | disposition home or self-care (01) ==
PROVIDERS: PCP Internal Medicine; Visit Provider Orthopaedic Surgery
DX: Z96.651 Presence of right artificial knee joint (principal)
CPT/HCPCS: 99024

== ENCOUNTER → 2023-01-31 11:19 | Outpatient (BNVA) | payer MEDICARE, SELFPAY | PROVIDERS: PCP Internal Medicine; Visit Provider Orthopaedic Surgery ==

== ENCOUNTER 2023-05-02 11:09 | Outpatient (AMB) | payer MEDICARE, SELFPAY ==
--- NOTE | 2023-05-02 11:30 | A.OFFVIS_ITS ---
Intake Intake Visit Reasons: P.O - RT TKA 12/17/22 Intake Note: Maci presents with complaints of mild intermittent discomfort in her right knee after undergoing right total knee replacement surgery on 12/17/2022. He denies any fevers or chills. She takes Tylenol as needed for discomfort. She has completed formal physical therapy. She continues to do stretching exercises on her own. Allergies No Known Allergies Allergy (Verified 05/02/23 11:31) Medication List - Last Reconciled 05/02/23 by Coleman Salcedo MD acetaminophen 650 mg (2 x 325 mg) PO Q6H PRN 30 days cholecalciferol (vitamin D3) (Vitamin D3) 50 mcg PO QAM cyanocobalamin (vitamin B-12) (Vitamin B-12) 1,000 mcg PO QAM rosuvastatin 5 mg PO QAM PFSH Medical History Resting tremor RBBB (right bundle branch block) Bifascicular bundle branch block Elevated cholesterol Back pain Arthritis Surgical History Hx of excision of mass Hx of arthroscopy of right knee Hx of foot surgery History of left knee replacement (04/20/22) Social History Household Members: None Are you a primary health care administrator to a significant other at home: No Do you presently have visiting nurse or other home services: No Patient Tobacco Use Status: Never used Tobacco Advance Directives Date on File: 12/17/22 service: No Current occupational status: retired Physical Exam Const Other: Well-nourished well-developed very friendly female awake alert and oriented x3 in no acute distress Extrem Other: Bilateral lower extremity examination shows good capillary refill, no skin lesions noted, normal sensation light touch Right knee examination shows that the surgical incision is well healed, no erythema, active extension and flexion to 120 degrees, her patella tracks well Assessment & Plan Assessment & Plan (1) Right knee pain: Code(s): M25.561 - Pain in right knee Plan Ms. Guerrero continues to do very well after undergoing right total knee replacement surgery on 12/17/2022. She will continue with her home exercise program. She does know to take antibiotics before any dental work. She will contact me prior to her follow-up appointment in 3 months should any questions or concerns arise. Feel free to call me at any time should questions regarding her orthopedic management arise. I spent 20 minutes in reviewing the patient's records and imaging studies, seeing the patient and documenting in the medical record. Coding Level of Care Code Est Pt Level 2 (86627) Diagnoses Right knee pain M25.561
== END 2023-05-02 11:47 | disposition home or self-care (01) ==
PROVIDERS: PCP Internal Medicine; Visit Provider Orthopaedic Surgery
DX: M25.561 Pain in right knee (principal); Z96.651 Presence of right artificial knee joint
CPT/HCPCS: 99213

== ENCOUNTER → 2023-05-02 11:09 | Outpatient (BNVA) | payer MEDICARE, SELFPAY | PROVIDERS: PCP Internal Medicine; Visit Provider Orthopaedic Surgery | DX: M25.561 Pain in right knee (principal); Z96.651 Presence of right artificial knee joint | CPT/HCPCS: 99212 ==

== ENCOUNTER 2023-09-19 09:40 | Outpatient (REF) | payer MEDICARE, SELFPAY | END 2023-09-19 09:41 | disposition home or self-care (01) | LOC: HO.HOSX 09:40 | PROVIDERS: Visit Provider Orthopaedic Surgery | DX: M25.561 Pain in right knee (principal); M25.562 Pain in left knee; Z96.653 Presence of artificial knee joint, bilateral | CPT/HCPCS: 99212 ==

== ENCOUNTER 2023-09-19 10:57 | Outpatient (AMB) | payer MEDICARE, SELFPAY ==
--- NOTE | 2023-09-19 10:58 | A.OFFVIS_ITS ---
Vital Signs 09/19/23 10:59 Height 5 ft 4 in Weight 161 lb BMI 27.6 Intake Visit Reasons: Status post bilateral knee replacements Intake Note: Maci is a 78 year old female who presents with mild intermittent discomfort in both of her knees after undergoing left total knee replacement surgery on 04/20/2022 as well as right total knee replacement surgery on 12/17/2022. The patient continues with her home exercise program. She takes Tylenol as needed for discomfort. She denies any fevers or chills. Allergies No Known Allergies Allergy (Verified 09/19/23 11:02) Medication List - Last Reconciled 09/19/23 by Coleman Salcedo MD acetaminophen 650 mg (2 x 325 mg) PO Q6H PRN 30 days cholecalciferol (vitamin D3) (Vitamin D3) 50 mcg PO QAM cyanocobalamin (vitamin B-12) (Vitamin B-12) 1,000 mcg PO QAM rosuvastatin 5 mg PO QAM PFSH Medical History (Updated 09/19/23 @ 11:29 by Coleman Salcedo MD) Resting tremor RBBB (right bundle branch block) Bifascicular bundle branch block Elevated cholesterol Back pain Arthritis Surgical History (Updated 09/19/23 @ 11:05 by Radha Worrell CMA) Hx of right knee surgery (12/17/22) Hx of excision of mass Hx of arthroscopy of right knee Hx of foot surgery History of left knee replacement (04/20/22) Social History Household Members: None Are you a primary children's zoo caretaker to a significant other at home: No Do you presently have visiting nurse or other home services: No Patient Tobacco Use Status: Never used Tobacco Advance Directives Date on File: 12/17/22 service: No Current occupational status: retired Physical Exam Vital Signs: BMI result Body Mass Index 27.6 Const Other: Well-nourished well-developed very friendly female awake alert and oriented x3 in no acute distress Extrem Other: Bilateral lower extremity examination shows good capillary refill, no skin lesions noted, normal sensation light touch Bilateral knee examination shows that the surgical incisions are well healed, no erythema, full active extension and flexion to 120 degrees, her patellae track well Assessment & Plan Assessment & Plan (1) Left knee pain: Code(s): M25.562 - Pain in left knee Category: Medical (2) Right knee pain: Code(s): M25.561 - Pain in right knee Category: Medical (3) Status post bilateral knee replacements: Code(s): Z96.653 - Presence of artificial knee joint, bilateral Plan Ms. Guerrero continues to do very well after undergoing left total knee replacement surgery on 04/20/2022 as well as right total knee replacement surgery on 12/17/2022. She will continue with a home exercise program. She does know to take antibiotics before dental work. She will contact me prior to her annual follow-up appointment should any questions or concerns arise. Feel free to call me at any time should questions regarding her orthopedic management arise. I spent 20 minutes in reviewing the patient's records and imaging studies, seeing the patient and documenting in the medical record. Orders: Orders XR knee LT 3V 12/26/23 M25.562 - Pain in left knee XR knee RT 3V 12/26/23 M25.561 - Pain in right knee Coding Level of Care Code Est Pt Level 2 (81460) Diagnoses Left knee pain M25.562 Right knee pain M25.561 Status post bilateral knee replacements Z96.653
[2023-09-19 10:59] VITALS: BMI 27.6
== END 2023-09-19 11:25 | disposition home or self-care (01) ==
PROVIDERS: PCP Internal Medicine; Visit Provider Orthopaedic Surgery
DX: M25.562 Pain in left knee (principal); M25.561 Pain in right knee; Z96.653 Presence of artificial knee joint, bilateral
CPT/HCPCS: 99213

== ENCOUNTER 2023-12-26 10:16 | Outpatient (AMB) | payer MEDICARE, SELFPAY ==
--- NOTE | 2023-12-26 10:24 | A.OFFVIS_ITS ---
Intake Visit Reasons: Status post bilateral knee replacements Intake Note: Maci is a 78 year old female who presents with complaints of mild intermittent discomfort in both of her knees after undergoing bilateral total knee replacement surgeries. She does not take any medicines for discomfort. She continues to walk for exercise. She denies any fevers or chills. Allergies No Known Allergies Allergy (Verified 12/26/23 10:24) Medication List - Last Reconciled 12/26/23 by Coleman Salcedo MD acetaminophen 650 mg (2 x 325 mg) PO Q6H PRN 30 days cholecalciferol (vitamin D3) (Vitamin D3) 50 mcg PO QAM cyanocobalamin (vitamin B-12) (Vitamin B-12) 1,000 mcg PO QAM rosuvastatin 5 mg PO QAM PFSH Medical History (Updated 09/19/23 @ 11:29 by Coleman Salcedo MD) Resting tremor RBBB (right bundle branch block) Bifascicular bundle branch block Elevated cholesterol Back pain Arthritis Surgical History (Updated 09/19/23 @ 11:05 by Radha Worrell CMA) Hx of right knee surgery (12/17/22) Hx of excision of mass Hx of arthroscopy of right knee Hx of foot surgery History of left knee replacement (04/20/22) Social History Household Members: None Are you a primary home child care provider to a significant other at home: No Do you presently have visiting nurse or other home services: No Patient Tobacco Use Status: Never used Tobacco Advance Directives Date on File: 12/17/22 service: No Current occupational status: retired Physical Exam Const Other: Well-nourished well-developed very friendly female awake alert and oriented x3 in no acute distress Extrem Other: Bilateral lower extremity examination shows good capillary refill, no skin lesions noted, normal sensation light touch Bilateral knee examination shows that the surgical incisions are well healed, no erythema, full active extension and flexion to 120 degrees, her patellae track well Assessment & Plan Assessment & Plan (1) Status post bilateral knee replacements: Code(s): Z96.653 - Presence of artificial knee joint, bilateral Plan Ms. Guerrero continues to do well after undergoing bilateral total knee replacement surgeries. She will continue with her home exercise program. She does know to take antibiotics before any dental work. She will contact me prior to her annual follow-up appointment should any questions or concerns arise. Feel free to call me at any time should questions regarding her orthopedic manedeborah santos arise. I spent 21 minutes in reviewing the patient's records and imaging studies, seeing the patient and documenting in the medical record. Coding Level of Care Code Est Pt Level 3 (47924) Diagnoses Status post bilateral knee replacements Z96.653
== END 2023-12-26 10:44 | disposition home or self-care (01) ==
PROVIDERS: PCP Internal Medicine; Visit Provider Orthopaedic Surgery
DX: M25.562 Pain in left knee (principal); M25.561 Pain in right knee; Z96.653 Presence of artificial knee joint, bilateral
CPT/HCPCS: 99213

== ENCOUNTER 2023-12-26 10:19 | Outpatient (REF) | payer MEDICARE, SELFPAY | END 2023-12-26 10:20 | disposition home or self-care (01) | LOC: HO.HOSX 10:19 | PROVIDERS: Visit Provider Orthopaedic Surgery | DX: Z96.653 Presence of artificial knee joint, bilateral (principal) | CPT/HCPCS: 99212 ==

== ENCOUNTER 2024-12-24 08:35 | Outpatient (REF) | payer MEDICARE, SELFPAY ==
--- NOTE | ~2024-12-24 | XR_ITS ---
EXAMINATION: XR KNEE, RIGHT CLINICAL INFORMATION: M25.561 - Pain in right knee COMPARISON: Radiographs on January 03, 2023 TECHNIQUE: Three views of the right knee. FINDINGS: Prosthetic components of the total knee arthroplasty are appropriately aligned without periprosthetic fracture or abnormal lucency. No joint effusion. XR/XR knee RT 3V IMPRESSION: Appropriate alignment of the right total knee arthroplasty without evidence of complications. Electronically signed by: Crispin Mensah MD 12/24/2024 01:51 PM EDT
--- OUTSIDE RECORDS SUMMARY | 2024-12-25 08:49 | XMS_ITS | Clinical Summary ---
Author Organization [facility] Address [address] [place] [address] Care Team Providers Care Guest Room Inspector Name Role Phone Laura Soto MD Primary Care Provider Surgical History Surgery Date Site/Laterality Comments KNEE SURGERY PROCEDURE:KNEE SURGERY Medical History Medical History Date Comments Thyroid disorder DX:Thyroid diso rder Social History Tobacco Use Types Packs/Day Years Used Date Smoking Tobacco: Never Assessed Comments Unknown Sex and Gender Information Value Date Recorded Sex Assigned at Not on file Legal Sex Female 1:47 AM EST Gender Identity Not on file Sexual Orientation Not on file Obstetrics History Last Filed Vital Signs Vital Sign Reading Time Taken Comments Blood Pressure - - Pulse - - Temperature - - Respiratory Rate - - Oxygen Saturation - - Inhaled Oxygen Concentration - - Weight 74.8 kg (165 lb) 04/03/2022 9:57 AM EST Height - - Body Mass Index - - Plan of Treatment Health Maintenance Due Date Last Done Comments DTaP,Tdap,and Td Vaccines (1 - Tdap) 1963 Pneumococcal Vaccine: 50+ Ye ars (1 of 1 - PCV) 1994 Zoster Vaccines (1 of 2) 1994 RSV Immunization Adult Patie nts (1 - 1-dose 75+ series) 2019 Falls Risk Assessment 04/21/2022 Osteoporosis Screening (Bone Density Screening) 04/21/2022 Social Influencers of Health Screening 04/21/2022 COVID-19 Vaccine (1 - 2023-2 5 season) 2024 Depression Screening 05/13/2024 Influenza Vaccine (#1) 2025 HIB Vaccines Aged Out No longer eligi ble based on patient's age to complete this topic HPV Vaccines Aged Out No longer eligi ble based on patient's age to complete this topic Hepatitis A Vaccines Aged Out No long er eligible based on patient's age to complete this topic Hepatitis B Vaccines Aged Out No long er eligible based on patient's age to complete this topic IPV Vaccines Aged Out No longer eligi ble based on patient's age to complete this topic MMR Vaccines Aged Out No longer eligi ble based on patient's age to complete this topic Meningococcal ACWY Vaccine Aged Out N o longer eligible based on patient's age to complete this topic Meningococcal B Vaccine Aged Out No l onger eligible based on patient's age to complete this topic RSV Immunization Patients Un miguel 20 months Aged Out No longer eligible b ased on patient's age to complete this topic Varicella Vaccines Aged Out No longer eligible based on patient's age to complete this topic Advance Directives Documents on File Type Date Recorded Patient Temper Mill Operator Expl anation Health Care Decision (hx) 04/24/2022 AD ESTRADA DIRECTIVE Health Care Decision (hx) 04/24/2022 AD ESTRADA DIRECTIVE Health Care Decision (hx) 04/21/2022 AD ESTRADA DIRECTIVE Health Care Decision (hx) 04/21/2022 AD ESTRADA DIRECTIVE Health Care Decision (hx) 04/03/2022 HE ALTH CARE PROXY Care Teams Guest Room Inspector Relationship Specialty Start Date End Date Laura Soto MD PCP - General Internal Medicine 12/08/19
--- OUTSIDE RECORDS SUMMARY | 2024-12-25 08:49 | XMS_ITS | Clinical Summary ---
Author Organization [facility] Address [address] [place] [address] Care Team Providers Care Mobile Lab Technician Name Role Phone Laura Soto MD Primary [...] age to complete this topic Care Teams Mobile Lab Technician Relationship Specialty Start Date End Date Laura Soto MD PCP - General Internal Medicine 12/08/19
== END 2024-12-24 08:36 | disposition home or self-care (01) ==
LOC: HO.HOSX 08:35
PROVIDERS: Visit Provider Orthopaedic Surgery
DX: M25.561 Pain in right knee (principal); Z96.653 Presence of artificial knee joint, bilateral
CPT/HCPCS: 73562; 99212

== ENCOUNTER 2024-12-24 10:31 | Outpatient (AMB) | payer MEDICARE, SELFPAY ==
--- NOTE | 2024-12-24 10:55 | MHC.OFFVIS ---
Intake Visit Reasons: OV - f/u RT TKA 12/17/22 Intake Note: Maci is a 79 year old female who presents today as a follow up for her Right TKA 12/17/22 . Patient states she is doing very well and has no concerns for today's visit. States she has completed P.T. she continues to walk for exercise. She does not take any medicines for discomfort. The patient also underwent left total knee replacement surgery in 2021. She denies any discomfort in her left knee. Allergies No Known Allergies Allergy (Verified 12/24/24 11:00) Medication List - Last Reconciled 12/24/24 by Coleman Salcedo MD acetaminophen 650 mg (2 x 325 mg) PO Q6H PRN 30 days cholecalciferol (vitamin D3) (Vitamin D3) 50 mcg PO QAM cyanocobalamin (vitamin B-12) (Vitamin B-12) 1,000 mcg PO QAM rosuvastatin 5 mg PO QAM PFSH Medical History (Updated 12/24/24 @ 11:09 by Coleman Salcedo MD) Resting tremor RBBB (right bundle branch block) Bifascicular bundle branch block Elevated cholesterol Back pain Arthritis Surgical History Hx of right knee surgery (12/17/22) Hx of excision of mass Hx of arthroscopy of right knee Hx of foot surgery History of left knee replacement (04/20/22) Social History Household Members: None Are you a primary wound care center consultant to a significant other at home: No Do you presently have visiting nurse or other home services: No Patient Tobacco Use Status: Never used Tobacco Advance Directives Date on File: 12/17/22 service: No Current occupational status: retired Physical Exam Const Other: Well-nourished well-developed very friendly female awake alert and oriented x3 in no acute distress Extrem Other: Bilateral lower extremity examination shows good capillary refill, no skin lesions noted, normal sensation light touch Bilateral knee examination shows that the surgical incisions are well healed, no erythema, full active extension and flexion to 120 degrees, her patellae track well Results Reviewed Results Reviewed: X-rays of the patient's right knee show a total knee arthroplasty in good position with no signs of loosening, no acute bony abnormalities Assessment & Plan Assessment & Plan (1) 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 She will continue with her home exercise program. She does know to take antibiotics before any dental work. She will contact me prior to her annual follow-up appointment should any questions or concerns arise. Feel free to call me at any time should questions regarding her orthopedic management arise. I spent 22 minutes in reviewing the patient's records and imaging studies, seeing the patient and documenting in the medical record. 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
--- OUTSIDE RECORDS SUMMARY | 2024-12-24 11:37 | XMS_ITS | Clinical Summary ---
Author Organization [facility] Address [address] [place] [address] Care Team Providers Care Director Of Occupational Health Name Role Phone Laura Soto MD Primary Care Provide r Allergies No known active allergies Medications Medication Sig Dispensed Refills Start Date End Date Status atorvastatin (LIPITOR) tablet 10 mg 0 07/08/2017 Active gabapentin (NEURONTIN) 100 MG capsule Take 100 mg by mouth 3 (three) times a day. 0 02/10/2021 Active rosuvastatin (CRESTOR) tablet 5 mg 0 01/18/2021 Active celecoxib (CeleBREX) 200 MG capsule Take 1 capsule (200 mg total) by mouth daily. 60 capsule 0 05/01/2022 Active amoxicillin (AMOXIL) 500 MG tablet Take 4 tabs 1 hour prior to dental appointment 20 tablet 3 05/04/2022 Active Social History Tobacco Use Types Packs/Day Years Used Date Smoking Tobacco: Never Assessed Sex and Gender Information Value Date Recorded Sex Assigned at Not on file Gender Identity Not on file Sexual Orientation Not on file Job Start Date Occupation Industry Not on file Not on file Not on file Last Filed Vital Signs Vital Sign Reading Time Taken Comments Blood Pressure - - Pulse - - Temperature - - Respiratory Rate - - Oxygen Saturation - - Inhaled Oxygen Concentration - - Weight 74.8 kg (165 lb) 04/03/2022 9:57 AM EST Height 162.6 cm (5' 4 ) 12/08/2019 2:45 PM EDT Body Mass Index 28.32 12/08/2019 2:45 PM EDT Plan of Treatment Health Maintenance Due Date Last Done Comments Depression Screening 1956 Preventative Health Evaluation 1962 DTap / Tdap / Td (1 - Tdap) 1963 Fall Risk Assessment 2009 Osteoporosis Screening (DEXA Scan) 2009 RSV Adult > 60+ Yrs or (1 - 1-dose 75+ series) 2019 COVID-19 Vaccine ( season) 2024 09/01/2021, 02/07/2021, 07/13/2020, Additional history exists Influenza Vaccine (#1) 2025 2, 01/23/2021, 03/08/2015 Shingrix-Zoster Vaccine Completed 04/14/2018, 02/03 Pneumococcal Vaccine Completed 07/23/2018, 02/01/20 11 Hepatitis B Vaccines Aged Out No long er eligible based on patient's age to complete this topic RSV Ped < 20 months Aged Out No longe r eligible based on patient's age to complete this topic Care Teams Director Of Occupational Health Relationship Specialty Start Date End Date Laura Soto MD PCP - General Internal Medicine 12/08/19
--- OUTSIDE RECORDS SUMMARY | 2024-12-24 11:37 | XMS_ITS ---
Author Name [facility] Organization Unknown Care Team Organization Name Specialty Phone Email Start Date End Da te [facility] DREW GARZON Primary [facility] 04/12/2022 12/30/2023
== END 2024-12-24 11:08 | disposition home or self-care (01) ==
LOC: HO.HOS 10:35
PROVIDERS: PCP Internal Medicine; Visit Provider Orthopaedic Surgery
DX: Z47.89 Encounter for other orthopedic aftercare (principal); Z96.653 Presence of artificial knee joint, bilateral
CPT/HCPCS: 99213; G2211

== ENCOUNTER → 2024-12-24 10:42 | Outpatient (BNV) | payer MEDICARE, SELFPAY | PROVIDERS: Visit Provider Radiology Body Imaging | DX: Z96.651 Presence of right artificial knee joint (principal) | CPT/HCPCS: 73562 ==